=== PATIENT | male | born 1995 | race Caucasian/White ===

== ENCOUNTER 2018-03-03 13:53 | Emergency (ER) | payer MEDICAID ==
[2018-03-03] MEDS: CEPHALEXIN 500 MG CAP PO (17:17)
[2018-03-03] MEDS: DIPHENHYDRAMINE 25 MG CAP PO (17:17)
[2018-03-03] MEDS: DEXAMETHASONE 4 MG TAB PO (17:20)
== END 2018-03-03 17:29 | disposition home or self-care (01) ==
LOC: FTE 13:53
DX: S60.561A Insect bite (nonvenomous) of right hand, initial encounter (principal); W57.XXXA Bitten or stung by nonvenomous insect and other nonvenomous arthropods, initial encounter; Y92.9 Unspecified place or not applicable
CPT/HCPCS: 99283; Z7502

== ENCOUNTER 2018-03-24 12:38 | Emergency (ER) | payer MEDICAID | END 2018-03-24 15:06 | disposition home or self-care (01) | LOC: FTE 12:38 | DX: B02.9 Zoster without complications (principal) | CPT/HCPCS: 99283 ==